=== PATIENT | male | born 1975 | race Caucasian/White ===

== ENCOUNTER → 2024-05-20 | Outpatient (CLI) | payer BC, SELFPAY ==
[2024-05-20 11:09] LABS: Free T4 (Free Thyroxine) 2.16 ng/dL (0.89-1.76); Thyroid Stimulating Hormone 0.22 uIU/mL (0.55-4.78)
[2024-05-20 11:10] LABS: Follicle Stimulating Hormone 4.61 mIU/mL (See Note)
[2024-06-06 17:48] LABS: Thyroglobulin Antibodies <1 IU/mL (< OR = 1)
[2024-06-07 06:32] LABS: Albumin 4.3 g/dL (3.6-5.1); Luteinizing Hormone* 4.2 mIU/mL (1.5-9.3); Prolactin* 4.9 ng/mL (2.0-18.0); T3,Total* 80 ng/dL (76-181); Testosterone, Bioavailable 171.4 ng/dL (110.0-575.0)
[2024-06-07 06:33] LABS: Sex Hormone Binding Globulin* 18 nmol/L (10-50); Testosterone,Total 412 ng/dL (250-1100); Thyroglobulin <0.1 ng/mL
[2024-06-22 08:28] LABS: SHBG DUPLICATE ORDER
== END | disposition home or self-care (01) ==
PROVIDERS: PCP Family Medicine; Referring Provider Internal Medicine Endocrinology, Diabetes & Metabolism; Visit Provider Internal Medicine Endocrinology, Diabetes & Metabolism
DX: C73 Malignant neoplasm of thyroid gland (principal); E29.1 Testicular hypofunction
CPT/HCPCS: 36415; 82040; 83001; 83002; 84146; 84270; 84403; 84432; 84439; 84443; 84480; 86800

== ENCOUNTER → 2024-07-01 | Outpatient (CLI) | payer BC, SELFPAY ==
--- NOTE | 2024-07-01 12:30 | XR_ITS ---
Examination: Thyroid sonography complete TECHNIQUE: High-resolution sonographic images thyroid bed Exam date and time: July 01, 2024 1325 hours INDICATIONS: Thyroid cancer thyroidectomy April 2023 FINDINGS: No soft tissue mass in the thyroid bed IMPRESSION: No soft tissue mass in the thyroid bed
== END | disposition home or self-care (01) ==
LOC: CDIM 12:43
PROVIDERS: PCP Family Medicine; Referring Provider Internal Medicine Endocrinology, Diabetes & Metabolism; Visit Provider Internal Medicine Endocrinology, Diabetes & Metabolism
DX: C73 Malignant neoplasm of thyroid gland (principal)
CPT/HCPCS: 76536

== ENCOUNTER → 2025-01-10 | Outpatient (CLI) | payer BC, SELFPAY ==
[2025-01-10 09:33] LABS: Follicle Stimulating Hormone 5.04 mIU/mL (See Note); Free T4 (Free Thyroxine) 1.89 ng/dL (0.89-1.76); Thyroid Stimulating Hormone 0.10 uIU/mL (0.55-4.78)
[2025-01-15 05:06] LABS: Thyroglobulin Antibodies <1 IU/mL (< OR = 1)
[2025-01-16 06:49] LABS: Luteinizing Hormone* 5.2 mIU/mL (1.5-9.3); Prolactin* 5.6 ng/mL (2.0-18.0); T3,Total* 78 ng/dL (76-181); Testosterone,Tot (Adult Male)* 648 ng/dL (250-827); Thyroglobulin <0.1 ng/mL
== END | disposition home or self-care (01) ==
LOC: COPL 08:10
PROVIDERS: PCP Family Medicine; Referring Provider Internal Medicine Endocrinology, Diabetes & Metabolism; Visit Provider Internal Medicine Endocrinology, Diabetes & Metabolism
DX: E29.1 Testicular hypofunction (principal); C73 Malignant neoplasm of thyroid gland
CPT/HCPCS: 36415; 83001; 83002; 84146; 84403; 84432; 84439; 84443; 84480; 86800

== ENCOUNTER → 2025-01-27 | Outpatient (CLI) | payer BC, SELFPAY ==
[2025-01-27 08:38] LABS: Basophils # (Auto) 0.0 Thou/mm3 (0.0-0.2); Basophils % (Auto) 1 % (0-2.5); Eosinophils # (Auto) 0.2 Thou/mm3 (0.0-0.5); Eosinophils % (Auto) 5 % (0-10); Hematocrit 46.0 % (41.0-53.0); Hemoglobin 16.5 g/dL (13.5-16.0); Immature Granulocytes Auto 0.01 Thou/mm3 (0.00-0.00); Lymphocytes # (Auto) 1.3 Thou/mm3 (1.0-4.8); Lymphocytes % (Auto) 26 % (10-50); Mean Corpuscular HGB Conc 35.9 g/dl (31.0-37.0); Mean Corpuscular Hemoglobin 31.7 pg (25.0-35.0); Mean Corpuscular Volume 89 fL (80-100); Monocytes # (Auto) 0.4 Thou/mm3 (0.0-0.8); Monocytes % (Auto) 9 % (0-12); Neutrophils # (Auto) 2.9 Thou/mm3 (1.8-7.7); Neutrophils % (Auto) 60 % (37-80); Nucleated Red Blood Cell # 0.00 Thou/mm3 (0.00-0.00); Nucleated Red Blood Cell % 0 /100 WBC (0); Platelet Count 207 Thou/mm3 (140-440); RDW Standard Deviation 40.4 fL (35.1-43.9); Red Blood Count 5.20 Miln/mm3 (4.50-5.90); White Blood Count 4.9 Thou/mm3 (3.8-10.6)
[2025-01-27 08:44] LABS: Glucose Estimated Average 88 mg/dL (80-131); Hemoglobin A1C 4.7 % Hgb (4.8-6.0)
[2025-01-27 08:50] LABS: Alanine Aminotransferase 32 U/L (10-49); Albumin, Serum 4.1 gm/dL (3.5-5.0); Albumin/Globulin Ratio 1.6 (1.2-2.2); Alkaline Phosphatase 50 U/L (46-116); Anion Gap 7 (7-16); Aspartate Amino Transferase 31 U/L (0-34); BUN/Creatinine Ratio 9 Ratio (12-20); Bilirubin,Total 0.8 mg/dL (0.3-1.2); Blood Urea Nitrogen 14 mg/dL (9-23); Calcium 9.0 mg/dL (8.3-10.6); Calcium (Corrected) 9.0 mg/dL (8.5-10.1); Carbon Dioxide 30.0 mMol/L (20.0-31.0); Cardiac Risk Estimate 3.4 RATIO (4.0-6.7); Chloride 105 mMol/L (98-107); Cholesterol 162 mg/dL (132-200); Creatinine (Component) 1.5 mg/dL (0.6-1.3); Globulin 2.5 gm/dL (2.3-3.5); Glucose 99 mg/dL (74-106); HDL Cholesterol 48 mg/dL (40-60); LDL Cholesterol,Calculated 97 mg/dL (0-130); Osmolality,Calculated 283 (275-295); Potassium 4.9 mMol/L (3.4-5.1); Sodium 142 mMol/L (136-145); Total Protein 6.6 gm/dL (5.7-8.2); Triglycerides 86 mg/dL (30-150); eGFR 57 See Note
[2025-01-27 09:16] LABS: MHATP/TP-PA* See Sep Rpt; Syphilis Reactive (Nonreactive)
[2025-01-27 09:30] LABS: Hepatitis A Antibody IgM Non Reactive (Non React); Hepatitis B Core Antibody IgM Non Reactive (Non React); Hepatitis B Surface Antigen Non Reactive (Non React); Hepatitis C Antibody Non Reactive (Non React)
[2025-01-27 11:20] LABS: Chlamydia trachomatis PCR Negative (Not Detect); Neisseria Gonorrhoeae DNA PCR Negative (Not Detect); Trichomonas Negative (Negative)
[2025-01-30 07:48] LABS: HIV Ag/Ab, 4th Gen NON-REACTIVE
== END | disposition home or self-care (01) ==
LOC: COPL 07:14
PROVIDERS: PCP Family Medicine; Referring Provider Student in an Organized Health Care Education/Training Program; Visit Provider Student in an Organized Health Care Education/Training Program
DX: E03.9 Hypothyroidism, unspecified (principal); Z11.3 Encounter for screening for infections with a predominantly sexual mode of transmission; Z85.850 Personal history of malignant neoplasm of thyroid
CPT/HCPCS: 36415; 80053; 80061; 80074; 83036; 85025; 86780; 87389; 87491; 87591; 87661

== ENCOUNTER 2025-03-20 10:33 | Outpatient (AMB) | payer BC, SELFPAY ==
[2025-03-20 11:09] VITALS: BP 135/81; PULSE 68; RESP 18; TEMP 36.3; O2SAT 98; BMI 32.7
--- NOTE | 2025-03-20 11:09 | PD.GSCLVISIT ---
Vital Signs - [facility] 03/20/25 11:09 Height 1.8 m Height Method Measured Weight 106.367 kg Weight Measurement Method Standing Scale BMI 32.7 BP 135/81 H Blood Pressure Source Automatic Cuff Blood Pressure Location Left Upper Arm Position Sitting Respiration 18 Pulse 68 Pulse Source Monitor Temp 97.4 F Temp Source Temporal Artery Scan Pulse Oximetry (%) 98 Oxygen Delivery Method Room Air Med/Allergies Allergies & Medications Allergies No Known Allergies Allergy (Verified 03/20/25 11:10) Medication Reconciliation No Known Home Medications 03/20/25 [History Confirmed 03/20/25] MA Intake Visit Data Collection New Patient or Established: Established Patient (seen at 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 Pain Present Currently: No Pain Scale Used: Santana-Brower/Numerical Associate Professor Of Surgery Required: No PCP or OBGYN visit in last 3 months: Yes Hx Now: No Do You Feel Safe at Home: Yes Authorities Contacted: N/A Smoking Status Smoking Status: Former smoker Immunization / Flu Flu Vaccine in the Last 12 Months: Yes Flu Vaccine Exclusion Criteria: Already Received Past Medical History Social History SMOKING STATUS: Smoking status: Former smoker Office Procedures GNS Level of Care Nursing/Assessment Patient Status: Established Patient Nursing Assessment/Reassesment: Medication Reconciliation, Update PMH in EMR and Vital Signs Coordination of Care: Complex Care and Chronic Disease 1-5, Consent,records obtained, informed consent, Education Simp Pt/Fam, Results/Orders obtained and Staff clarify orders Established Patient Charge Established Patient Point Assignment: 90 Patient Portal Questionaires Social History Tobacco History Smoking Status: Former smoker Domestic Abuse History Do You Feel Safe at Home: Yes Review of Systems Report any current symptoms Only answer those that you have currently: Past Medical History Past Medical History Have you ever been diagnosed with any of the following:
== END 2025-03-20 11:59 | disposition home or self-care (01) ==
PROVIDERS: PCP Family Medicine; Referring Provider Family Medicine; Supervising Provider Surgery; Visit Provider Surgery
DX: Z76.89 Persons encountering health services in other specified circumstances (principal)
CPT/HCPCS: 99213; G0463

== ENCOUNTER → 2025-06-30 | Outpatient (CLI) | payer BC, SELFPAY ==
[2025-06-30 10:18] LABS: Free T4 (Free Thyroxine) 2.06 ng/dL (0.89-1.76); Thyroid Stimulating Hormone 0.13 uIU/mL (0.55-4.78)
[2025-06-30 10:28] LABS: Follicle Stimulating Hormone 4.91 mIU/mL (See Note)
[2025-07-17 07:25] LABS: Albumin 4.3 g/dL (3.6-5.1); Estradiol, Ultrasensitive* 43 pg/mL (< OR = 29); Luteinizing Hormone* 4.7 mIU/mL (1.5-9.3); Prolactin* 5.3 ng/mL (2.0-18.0); SHBG 27 nmol/L (10-50); T3,Total* 88 ng/dL (76-181); Testosterone, Bioavailable 228.8 ng/dL (110.0-575.0); Testosterone, Free 116.2 pg/mL (46.0-224.0); Testosterone,Total 676 ng/dL (250-1100); Thyroglobulin Antibodies* <1 IU/mL (< OR = 1)
== END | disposition home or self-care (01) ==
LOC: COPL 09:06
PROVIDERS: PCP Internal Medicine; Referring Provider Internal Medicine Endocrinology, Diabetes & Metabolism; Visit Provider Internal Medicine Endocrinology, Diabetes & Metabolism
DX: E29.1 Testicular hypofunction (principal); C73 Malignant neoplasm of thyroid gland
CPT/HCPCS: 36415; 82040; 82670; 83001; 83002; 84146; 84270; 84403; 84439; 84443; 84480; 86800